=== PATIENT | female | born 1955 | race Caucasian/White ===

== ENCOUNTER → 2017-04-23 12:39 | Outpatient (CLI) | payer MEDICARE, SELFPAY ==
[2017-04-23 13:46] LABS: Erythrocyte Sedimentation Rate 9 mm/hr (0-30)
[2017-04-23 14:07] LABS: ALB/GLOB Ratio 1.2 RATIO (0.9-2.4); AST(SGOT) 18 U/L (15-37); Alanine Aminotransfer ALT/SGPT 26 U/L (13-56); Albumin, Serum 4.1 g/dL (3.2-5.0); Alkaline Phosphatase 104 U/L (45-117); Anion Gap 7 (5-15); BUN 13 mg/dL (7-18); BUN/Creat Ratio 12.1 RATIO (10-20); CRP < 2.90 mg/L (0.0-3.0); Calcium,Total 8.7 mg/dL (8.5-10.1); Chloride 108 mmol/L (98-107); Creatinine, Serum 1.07 mg/dL (0.55-1.02); EST Glomerular Filtration Rate 55 mL/min (>60); Est Glom Filt Rate - Afr Amer 67 mL/min (>60); Globulin 3.3 g/dL (2.2-4.2); Glucose 101 mg/dL (74-106); Potassium 3.7 mmol/L (3.5-5.1); Protein, Total 7.4 g/dL (6.4-8.2); Rheumatoid Factor < 10.0 IU/mL (<15); Sodium Level 137 mmol/L (136-145)
[2017-04-24 08:01] LABS: Hep B Surface Antibodies Non Reactive (.)
[2017-04-24 10:47] LABS: Rubella IgG 246.9 IU/mL
== END ==
PROVIDERS: Family Provider Internal Medicine; PCP Internal Medicine; Visit Provider Nurse Practitioner Acute Care
DX: A69.20 Lyme disease, unspecified (principal)
CPT/HCPCS: 36415; 80053; 85652; 86140; 86431; 86706; 86762

== ENCOUNTER → 2018-07-11 15:20 | Outpatient (CLI) | payer MEDICARE, SELFPAY ==
[2018-07-10 13:11] VITALS: BMI 40.8
--- NOTE | 2018-07-11 16:00 | MRI_ITS ---
STUDY: MRI BRAIN WITHOUT CONTRAST REASON FOR EXAM: Female, 63 years old. Bilateral hearing loss TECHNIQUE: Standardized multiplanar fat and water weighted pulse sequences were obtained. COMPARISON: None. FINDINGS: Normal size of the ventricles and extra-axial spaces for the patient's age. Mild periventricular white matter ischemic changes without evidence for acute infarct. There is a lesion in the deep white matter tracts high in the right frontal lobe without mass effect or restricted diffusion possibly representing old infarct. Chronic ischemic changes within the ayden.. Normal bilateral basal ganglia. Normal thalami. There is no extra-axial fluid accumulation. Normal flow voids within the major intracranial circulation suggesting patency by spin echo criteria. Empty sella deformity. Normal, infundibular stalk, optic chiasm and hypothalamus. Normal tectal plate and pineal gland. Normal midbrain, and medulla. Normal cerebellum. Normal basal cisterns. Normal bilateral temporal bones. There is a space-occupying lesion in the left cerebellopontine angle cistern extending into the internal auditory canal measuring approximately 1.77 x 1.06 cm most likely representing acoustic neuroma. Limited repeat study with contrast would be helpful for further evaluation if clinically warranted. No demonstrated orbital abnormality, within the constraints of a routine brain study. Mucosal thickening in the ethmoid sinuses.. Normal calvarium and skull base. Normal visualized soft tissue structures. Normal visualized upper cervical spine. MRI/Brain without Contrast IMPRESSION: Space-occupying lesion in left cerebellopontine angle cistern extending into the internal auditory canal likely representing acoustic or vestibular schwannoma. 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 N.B. : The above information has been verbally conveyed by Sergo Tuttle MD to Dr. Luis Enrique Antonio MD, on 07/11/2018 18:23:10 (ET). Electronically Signed: Sergo Tuttle MD at 16:59 EDT , Service support ,
== END ==
PROVIDERS: Family Provider Internal Medicine; PCP Internal Medicine; Referring Provider Nurse Practitioner Family; Visit Provider Nurse Practitioner Family
DX: H91.90 Unspecified hearing loss, unspecified ear (principal)
CPT/HCPCS: 70551